=== PATIENT | female | born 1950 | race Two or more races ===

== ENCOUNTER 2023-10-03 00:37 | Emergency (ER) | payer SELFPAY ==
[~2023-10-03] VITALS: Ht 152.4 cm; Wt 72.6 kg
[2023-10-03 02:00] LABS: BASOPHILS % (AUTO) 0.5 % (0.0-2.0); EOSINOPHILS # (AUTO) 0.1 K/uL (0.0-0.7); EOSINOPHILS % (AUTO) 1.3 % (0.0-6.0); HEMATOCRIT 41 % (33-45); HEMOGLOBIN 13.2 g/dL (11.5-14.8); LYMPHOCYTES # (AUTO) 1.4 K/uL (0.8-4.8); LYMPHOCYTES % (AUTO) 28.6 % (20.0-44.0); MEAN CORPUSCULAR HEMOGLOBIN 30 PG (26.0-33.0); MEAN CORPUSCULAR HGB CONC 33 g/dl (31.0-36.0); MEAN CORPUSCULAR VOLUME 91 fL (82-100); MONOCYTES # (AUTO) 0.4 K/uL (0.1-1.30); MONOCYTES % (AUTO) 7.2 % (2.0-12.0); NEUTROPHILS # (AUTO) 3.1 K/uL (1.8-8.9); NEUTROPHILS % (AUTO) 62.4 % (43.0-81.0); PLATELET COUNT (AUTO) 209 K/uL (150-450); RED BLOOD CELL COUNT(AUTO) 4.45 MIL/uL (4.0-5.2); RED CELL DISTRIBUTION WIDTH 14.2 % (11.5-15.0); WHITE BLOOD COUNT (AUTO) 4.9 K/uL (4.3-11.0)
[2023-10-03 02:10] LABS: CALCIUM, SERUM 8.5 mg/dL (8.5-10.1); CARBON DIOXIDE 27 mmol/L (21-32); CHLORIDE 105 mmol/L (98-107); CREATININE 0.5 mg/dL (0.6-1.3); GLUCOSE 101 mg/dL (74-106); POTASSIUM 4.3 mmol/L (3.5-5.1); SODIUM SERUM 138 mmol/L (136-145); UREA NITROGEN, BLOOD 21 mg/dL (7-18)
[2023-10-03 02:23] LABS: NT-PRO BNP 160 pg/mL (0-125)
[2023-10-03] MEDS ORDERED: MAG-55 PO (05:02)
[2023-10-03] MEDS ORDERED: CYCL5TAB PO (05:02)
[2023-10-03] MEDS ORDERED: KETO10TA2 PO (05:02)
[2023-10-03] MEDS ORDERED: ACETAMINOPHEN ES 500 MG TABLET ONE (05:13)
[2023-10-03] MEDS ORDERED: IBUPROFEN 400 MG TABLET ONE (05:13)
[2023-10-03] MEDS ORDERED: LIDOCAINE VISCOUS 2% UD 15 ML UDC ONE (05:13)
[2023-10-03] MEDS ORDERED: MAG HYDROX/AL HYDROX/SIMETH 30 ML UDC ONE (05:13)
[2023-10-03 05:23] VITALS: BP 139/71; TEMP 98.1; O2SAT 3
[2023-10-03] MEDS ORDERED: MAG HYDROX/AL HYDROX/SIMETH 30 ML UDC PO ONE (05:30)
[2023-10-03] MEDS ORDERED: ACETAMINOPHEN ES 500 MG TABLET PO ONE (05:30)
[2023-10-03] MEDS ORDERED: IBUPROFEN 400 MG TABLET PO ONE (05:30)
[2023-10-03] MEDS ORDERED: LIDOCAINE VISCOUS 2% UD 15 ML UDC MM ONE (05:30)
== END 2023-10-03 05:23 | disposition home or self-care (01) ==
LOC: ER 00:40
DX: R07.89 Other chest pain (principal); Z79.899 Other long term (current) drug therapy
CPT/HCPCS: 36415; 71045-TC; 80048-TC; 83880; 84484-TC; 85025-TC